=== PATIENT | male | born 1950 | race Two or more races ===

== ENCOUNTER 2024-12-30 13:30 | Emergency (ER) | payer MEDICARE, BC ==
[~2024-12-30] VITALS: Ht 175.3 cm; Wt 70.3 kg
--- NOTE | 2024-12-30 14:04 | ED.PDOC ---
History of Present Illness HPI Comments 74 year old male with a history of High Lipids presents to the ED for the c/c of 04/18 Left sided ABD, and Groin pain. Pt states that his pain started this past , but has progressively worsened, prompting his visit to the ED. Pt denies any fever, N/V/D or any other symptoms or modifying factors reported at this time. Time Seen by MD: 14:01 Reviewed Notes: Nurses Notes, Medications, Allergies Allergies: Coded Allergies: NO KNOWN ALLERGIES (Unverified , 12/30/24) Information Source: Patient Mode of Arrival: Ambulatory Severity: Moderate Timing: Days Duration: Since onset, Days Prehospital treatment: None Past Medical History PAST MEDICAL HISTORY: High Lipids Surgical History: Denies all surgeries Family History Family History: Reviewed,noncontributory to illness, No family hx of Cancer, No family hx of DM, No family hx of Heart deanna, No family hx of HTN, No family hx ofKidney deanna, No family hx of Liver deanna, No family hx of Lung deanna, No family hx of Stroke Social History Smoker: Non-Smoker Alcohol: Occasionally Drugs: Denies Drug Use Lives In: Home Constitutional: denies: chills, diaphoresis, fatigue, fever, malaise, sweats, weakness, others EENTM: denies: blurred vision, double vision, ear bleeding, ear discharge, ear drainage, ear pain, ear ringing, eye pain, eye redness, hearing loss, mouth pain, mouth swelling, nasal discharge, nose bleeding, nose congestion, nose pain, photophobia, tearing, throat pain, throat swelling, voice changes, others Respiratory: denies: cough, hemoptysis, orthopnea, SOB at rest, shortness of breath, SOB with excertion, stridor, wheezing, others Cardiovascular: denies: chest pain, dizzy spells, diaphoresis, Dyspnea on exertion, edema, irregular heart beat, left arm pain, lightheadedness, palpitations, PND, syncope, others Gastrointestinal: reports: abdominal pain; denies: abdomen distended, blood streaked bowels, constipated, diarrhea, dysphagia, difficulty swallowing, hematemesis, melena, nausea, poor appetite, poor fluid intake, rectal bleeding, rectal pain, vomiting, others Genitourinary: denies: burning, dysuria, flank pain, frequency, hematuria, incontinence, penile discharge, penile sore, pain, testicle pain, testicle swelling, urgency, others Neurological: denies: dizziness, fainting, headache, left sided numbness, left sided weakness, numbness, paresthesia, pre-existing deficit, right sided numbness, right sided weakness, seizure, speech problems, tingling, tremors, weakness, others Musculoskeletal: denies: back pain, gout, joint pain, joint swelling, muscle pain, muscle stiffness, neck pain, others Integumetry: denies: bruises, change in color, change in hair/nails, dryness, laceration, lesions, lumps, rash, wounds, others Allergic/Immunocompromised: denies: Difficulty Healing, Frequent Infections, Hives, Itching, others Hematologic/Lymphatic: denies: anemia, blood clots, easy bleeding, easy bruising, swollen glands, others Endocrine: denies: excessive hunger, excessive sweating, excessive thirst, excessive urination, flushing, intolerance to cold, intolerance to heat, unexplained weight gain, unexplained weight loss, others Psychiatric: denies: anxiety, bipolar disorder, depression, hopeless, panic disorder, schizophrenia, sleepless, suicidal, others All Other Systems: Reviewed and Negative Physical Exam General Appearance: Moderate Distress HEENT: Normal ENT Inspection, Pharynx Normal, TMs Normal Neck: Full Range of Motion, Non-Tender, Normal, Normal Inspection Respiratory: Chest Non-Tender, Lungs Clear, No Accessory Muscle Use, No Respiratory Distress, Normal Breath Sounds Cardiovascular: No Edema, No JVD, No Murmur, No Gallop, Normal Peripheral Pulses, Regular Rate/Rhythm Breast Exam: Deferred Gastrointestinal: LLQ, No Organomegaly, No Pulsatile Mass, Normal Bowel Sounds, Soft, Tenderness Genitalia: Deferred Pelvic: Deferred Rectal: Deferred Extremities: No calf tenderness, Normal capillary refill, Normal inspection, No rmal range of motion, Non-tender, No pedal edema Musculoskeletal : Apperance: Normal Neurologic: Alert, make up arranger II-XII nml as Tested, Motor Weakness, Normal Affect, Normal Mood, No Sensory Deficits Cerebellar Function: Normal Reflexes: Normal Skin: Dry, Normal Color, Warm Lymphatic: No Adenopathy Was a procedure done? Was a procedure done?: No EKG EKG : Pulse Rate (adult): 89 [place]: Normal Cardiac Rhythm: NSR Block: None Hypertrophy: None ST: Normal Differential Dx Considerations may include: Diverticulitis, small-bowel obstruction, UTI X-Ray, Labs, Meds, VS Vital Signs Date Time Temp Pulse Resp B/P (MAP) Pulse Ox O2 Delivery O2 Flow Rate FiO2 12/30/24 16:39 84 17 135/85 12/30/24 16:31 Room Air* 0 21 12/30/24 14:19 99.1 101 18 131/82 (98) 98 99.1 12/30/24 14:07 89 12/30/24 14:05 89 Lab Test 12/30/24 14:30 12/30/24 14:29 Range/Units White Blood Count 10.2 4.4-10.8 10^3/uL Red Blood Count 4.40 L 4.5-5.90 10^6/uL Hemoglobin 14.3 13.5-17.5 g/dL Hematocrit 40.9 L 41.0-53.0 % Mean Corpuscular Volume 92.8 80.0-100.0 fL Mean Corpuscular Hemoglobin 32.4 H 28.0-32.0 pg Mean Corpuscular Hemoglobin Concent 34.9 32.0-36.0 g/dL Red Cell Distribution Width 12.8 11.8-14.3 % Platelet Count 289 140-450 10^3/uL Mean Platelet Volume 7.1 6.9-10.8 fL Neutrophils (%) (Auto) 74.9 37.0-80.0 % Lymphocytes (%) (Auto) 14.1 10.0-50.0 % Monocytes (%) (Auto) 10.3 0.0-12.0 % Eosinophils (%) (Auto) 0.2 0.0-7.0 % Basophils (%) (Auto) 0.5 0.0-2.0 % Neutrophils # (Auto) 7.6 1.6-8.6 10 ^3/uL Lymphocytes # (Auto) 1.4 0.4-5.4 10 ^3/uL Monocytes # (Auto) 1.0 0-1.3 10 ^3/uL Eosinophils # (Auto) 0 0-0.8 10 ^3/uL Basophils # (Auto) 0 0-0.2 10 ^3/uL Nucleated Red Blood Cells 0.0 % Sodium Level 137 136-145 mmol/L Potassium Level 4.4 3.5-5.1 mmol/L Chloride Level 99 98-107 mmol/L Carbon Dioxide Level 29 20-31 mmol/L Anion Gap 9 5-15 Blood Urea Nitrogen 11 9-23 mg/dL Creatinine 0.85 0.700-1.30 mg/dL Glomerular Filtration Rate Calc 90 >90 mL/min BUN/Creatinine Ratio 12.9 10.0-20.0 Serum Glucose 99 74-106 mg/dL Calcium Level 10.2 8.7-10.4 mg/dL Total Bilirubin 0.9 0.2-1.0 mg/dL Aspartate Amino Transferase (AST) 18 <34 U/L Alanine Aminotransferase (ALT) 15 7-40 U/L Alkaline Phosphatase 72 46-116 U/L Total Protein 7.5 5.7-8.2 g/dL Albumin 4.6 3.2-4.8 g/dL Lipase Pending Urine Color Yellow Yellow Urine Clarity Clear Clear Urine pH 6.0 5.0-9.0 Urine Specific [place] 1.025 1.001-1.035 Urine Protein Trace H Negative Urine Ketones 2+ H Negative Urine Blood Negative Negative /uL Urine Nitrite Negative Negative Urine Bilirubin Negative Negative Urine Urobilinogen Normal Negative mg/dL Urine Leukocyte Esterase Negative Negative /uL Urine RBC 3 0 - 3 /hpf Urine Microscopic WBC < 1 0-3 /HPF Urine Squamous Epithelial Cells None seen <5 /hpf Urine Bacteria None seen None Seen /hpf Urine Mucus Few None Seen Urine Glucose Normal Normal mg/dL Current Medications Medications (Trade) Dose Ordered Sig/Viktoriya Route Start Time Stop Time Status Last Admin Ondansetron HCl (Zofran) 4 mg ONCE ONCE IV 12/30/24 14:15 12/30/24 14:16 DC 12/30/24 16:37 Morphine Sulfate 4 mg ONCE ONCE IV 12/30/24 14:15 12/30/24 14:16 DC 12/30/24 16:39 IMPRESSION: No acute abdominal or pelvic findings. The patient's urine test is negative for infection The CBC and chemistry panel are within normal limits At this time the patient is still having some pain and tenderness to the lower abdominal area The patient was given morphine for the pain and Zofran for the nausea The patient is being admitted to the hospitalist The patient understands and agrees with the management. Images Reviewed?: Images reviewed and evaluated by me Time of 1ST Reevaluation: 14:31 Reevaluation 1ST: Unchanged Patient Education/Counseling: Diagnosis, Treatment, Prognosis Family Education/Counseling: No Family Present SEPSIS Sepsis Screen Physician Orders Comprehensive Metabolic Panel (12/30/24 14:08) Lipase (12/30/24 14:08) Ct Ab Pel Wo Con-No Oral Or Iv (12/30/24 14:08) Heplock Iv (12/30/24 14:08) Electrocardigram (12/30/24 14:09) Vital Signs Date Time Temp Pulse Resp B/P (MAP) Pulse Ox O2 Delivery O2 Flow Rate FiO2 12/30/24 16:39 84 17 135/85 12/30/24 16:31 Room Air* 0 21 12/30/24 14:19 99.1 101 18 131/82 (98) 98 99.1 12/30/24 14:07 89 12/30/24 14:05 89 Laboratory Tests Test 12/30/24 14:30 White Blood Count 10.2 10^3/uL (4.4-10.8) Medications Medications Dose Ordered Sig/Viktoriya Route Start Time Stop Time Status Last Admin Dose Admin Morphine Sulfate 4 mg ONCE ONCE IV 12/30/24 14:15 12/30/24 14:16 DC 12/30/24 16:39 Ondansetron HCl 4 mg ONCE ONCE IV 12/30/24 14:15 12/30/24 14:16 DC 12/30/24 16:37 Departure 1 Departure Time of Disposition: 16:00 Impression: Primary Impression: Intractable abdominal pain Disposition: ADMITTED INPATIENT Condition: Fair Critical Care Note Critical Care Time?: No Stability Stability form required: Yes Unstable for transfer: ED Physician Assesment (Clinical assesment) Heart Score Heart Score: Heart Score Response (Comments) Value History N/A 0 EKG N/A 0 Age N/A 0 Risk Factors N/A 0 Troponin N/A 0 Total 0 I personally scribed for CADENCE CALDERON MD ([email or web address]) on 12/30/24 at 14:04. Electronically submitted by Simeon Berrios ([email or web address]). I personally scribed for CADENCE CALDERON MD ([email or web address]) on 12/30/24 at 14:07. Electronically submitted by Simeon Berrios ([email or web address]). I personally scribed for CADENCE CALDERON MD ([email or web address]) on 12/30/24 at 15:48. Electronically submitted by Simeon Berrios ([email or web address]). CADENCE CALDERON MD Dec 30, 2024 14:04
[2024-12-30 14:19] VITALS: TEMP 99.1; O2SAT 98
[2024-12-30 14:31] LABS: Urine Bacteria None Seen /hpf (None Seen)
[2024-12-30 14:40] LABS: Urine Blood Negative /uL (Negative); Urine Clarity Clear (Clear); Urine Color Yellow (Yellow); Urine Mucus FEW (None Seen); Urine Protein, UAD TRACE (Negative); Urine Specific Gravity 1.025 (1.001-1.035); Urine Squamous Epithelial Cell None Seen /hpf (<5); Urine Urobilinogen Normal (Negative); Urine WBC < 1 /HPF (0-3)
[2024-12-30 14:50] LABS: Basophils # (auto) 0 10 ^3/uL (0-0.2); Basophils % (auto) 0.5 % (0.0-2.0); Eosinophils # (auto) 0 10 ^3/uL (0-0.8); Eosinophils % (auto) 0.2 % (0.0-7.0); Hematocrit 40.9 % (41.0-53.0); Hemoglobin 14.3 g/dL (13.5-17.5); Lymphocytes # (auto) 1.4 10 ^3/uL (0.4-5.4); Lymphocytes % (auto) 14.1 % (10.0-50.0); Mean Corpuscular Hemoglobin 32.4 pg (28.0-32.0); Mean Corpuscular Hgb Conc. 34.9 g/dL (32.0-36.0); Mean Corpuscular Volume 92.8 fL (80.0-100.0); Monocytes % (auto) 10.3 % (0.0-12.0); Neutrophils # (auto) 7.6 10 ^3/uL (1.6-8.6); Neutrophils % (auto) 74.9 % (37.0-80.0); Platelet Count (auto) 289 10^3/uL (140-450); Red Cell Distribution Width 12.8 % (11.8-14.3); White Blood Cell 10.2 10^3/uL (4.4-10.8)
--- NOTE | 2024-12-30 15:11 | DVH ---
Exam: CT CT AB PEL WO CON-NO ORAL OR IV History: Left lower quadrant pain Comparison Study: None Technique: Multidetector spiral CT of the abdomen was performed from lung bases to pubic symphysis. I maging was performed without IV contrast. Axial, coronal and sagittal multiplanar reformats were obta ined from the axial data set by the technologist. Radiation Dose : 1. Abdomen/Pelvis: CTDIvol 6.66 mGy, DLP 389.04 mGy*cm. Findings: Evaluation of solid organs is limited due to lack of intravenous contrast use. Lung Bases: No acute or significant lung base finding. Normal heart size. No pleural or pericardial effusion. Liver: Bilobar hepatic cysts. Gallbladder and Biliary Tree: Unremarkable Spleen: Unremarkable Pancreas: The pancreas is grossly normal in appearance. Adrenal Glands: Unremarkable Kidneys: No hydronephrosis. 0.3 cm nonobstructing stone in the left lower pole kidney. Bladder: Grossly unremarkable for degree of distention. Bowel: The stomach is grossly normal in appearance. Diverticulosis. Normal appendix is visualized in the right lower quadrant without findings of appendicitis. Ascites: Absent Lymphadenopathy: No mesenteric, retroperitoneal or periportal lymphadenopathy. Abdominal Wall and Mesentery: Unremarkable. Vasculature: The visualized abdominal aorta is normal in size and caliber. There is extensive athero sclerotic calcification of the aorta and its branches. Evaluation of abdominal and pelvic vessels is limited due to lack of intravenous contrast. Pelvic Organs: Prostatomegaly. Musculoskeletal: No aggressive focal bony lesions, acute fractures or dislocation. Degenerative bo es of bilateral hips. IMPRESSION: No acute abdominal or pelvic findings. Radiation optimization: All CT scans at this facility use at least one of these dose optimization chad hniques: automated exposure control mA and/or kV adjustment per patient size (includes targeted exam s where dose is matched to clinical indication) or iterative reconstruction.
[2024-12-30 15:19] LABS: Alanine Aminotransferase 15 U/L (7-40); Albumin 4.6 g/dL (3.2-4.8); Alkaline Phosphatase 72 U/L (46-116); Anion Gap 9 (5-15); Aspartate Aminotransferase 18 U/L (<34); BUN/Creatinine Ratio 12.9 (10.0-20.0); Bilirubin, Total 0.9 mg/dL (0.2-1.0); Blood Urea Nitrogen 11 mg/dL (9-23); Calcium 10.2 mg/dL (8.7-10.4); Carbon Dioxide 29 mmol/L (20-31); Chloride 99 mmol/L (98-107); Glucose 99 mg/dL (74-106); Potassium 4.4 mmol/L (3.5-5.1); Sodium 137 mmol/L (136-145); Total Protein 7.5 g/dL (5.7-8.2)
[2024-12-30] MEDS: ONDANSETRON HCL 4 MG/2 ML VIAL IV ONE (16:37)
[2024-12-30 16:39] VITALS: BP 135/85; PULSE 84; RESP 17
[2024-12-30] MEDS: MORPHINE SULFATE 4 MG/ML SYR/VIAL IV ONE (16:39)
[2024-12-30 17:40] LABS: Lipase 25 U/L (12-53)
--- NOTE | 2024-12-30 21:04 | ECG ---
[facility] Test Date: 2024-12-30 Test Time: 14:05:38 Pat Name: RUBEN JACOBSON Department: TRIAGE Room: Gender: Telephone Services Sales Representative: DJ : 1950 Requested By: CADENCE CALDERON Order Number: [id number] Reading MD: Chas Sofia Measurements Intervals [place] Rate: 89 P: 62 [place]: 159 QRS: 66 QRSD: 91 T: 34 QT: 348 QTc: 424 Interpretive Statements Sinus rhythm Atrial premature complex Baseline wander in lead(s) V3 Electronically Signed On 12-31-2024 22:55:30 PDT by Chas Sofia Please click the below link to view image of tracing.
== END 2024-12-30 18:16 | disposition left against medical advice (07) ==
LOC: ER 13:30
DX: R10.32 Left lower quadrant pain (principal); F10.90 Alcohol use, unspecified, uncomplicated; E78.5 Hyperlipidemia, unspecified; Y90.9 Presence of alcohol in blood, level not specified
CPT/HCPCS: 36415; 74176; 80053; 81001; 83690; 85025; 93005; 96374; 96375; 99285; J2270; J2405